=== PATIENT | male | born 1960 | race Caucasian/White ===

== ENCOUNTER 2018-01-26 10:53 | Day surgery (SDC) | payer BC, OTHER ==
[~2018-01-26] VITALS: Ht 190.5 cm; Wt 112.0 kg
[2018-01-26 11:19] VITALS: BP 134/90
[2018-01-26] MEDS ORDERED: SODIUM CHLORIDE 0.9% 1,000 ML IV ONE (11:26)
[2018-01-26] MEDS ORDERED: LISI-167 PO (11:33)
[2018-01-26] MEDS ORDERED: NITR0.6T4 SL (11:35)
[2018-01-26] MEDS ORDERED: ASPI-496 PO (11:36)
[2018-01-26] MEDS ORDERED: PLEASE ENTER ALLERGIES MC SCH (12:00)
[2018-01-26 12:07] LABS: BASOPHILS # (AUTO) 0.03 x10^3/uL (0-0.1); BASOPHILS % (AUTO) 1 % (0-1); EOSINOPHILS # (AUTO) 0.27 x10^3/uL (0-0.4); EOSINOPHILS % (AUTO) 4 % (1-7); LYMPHOCYTES # (AUTO) 1.41 x10^3/uL (1-3.4); LYMPHOCYTES % (AUTO) 22 % (22-44); MD NO; MEAN CORPUSCULAR HEMOGLOBIN 32.8 pg (27.5-34.5); MEAN CORPUSCULAR HGB CONC 34.8 g/dL (33.2-36.2); MEAN CORPUSCULAR VOLUME 94.2 fL (81-97); MEAN PLATELET VOLUME 8.3 fL (7.4-10.4); MONOCYTES # (AUTO) 0.39 x10^3/uL (0.2-0.8); MONOCYTES % (AUTO) 6 % (2-9); NEUTROPHILS # (AUTO) 4.21 x10^3/uL (1.8-6.8); NEUTROPHILS % (AUTO) 67 % (42-75); PLATELET COUNT 181 x10^3/uL (130-400); RED BLOOD COUNT 4.51 x10^6/uL (4.38-5.82); RED CELL DISTRIBUTION WIDTH 14.1 % (9.4-14.8)
[2018-01-26 12:13] LABS: ANION GAP 7 mmol/L (5-15); CALCIUM 8.4 mg/dL (8.5-10.1); CHLORIDE 109 mmol/L (98-107); CREATININE 1.12 mg/dL (0.7-1.3)
[2018-01-26] MEDS ORDERED: MIDAZOLAM 1 MG/ML, 5ML ONE (13:11)
[2018-01-26] MEDS ORDERED: TICAGRELOR 90 MG TABLET ONE (13:11)
[2018-01-26] MEDS ORDERED: VERAPAMIL 2.5 MG/ML, 2ML ONE (13:11)
[2018-01-26] MEDS ORDERED: FENTANYL PF 100 MCG/2ML ONE (13:11)
[2018-01-26] MEDS ORDERED: HEPARIN 1,000 UNITS/ML, 10ML ONE (13:12)
[2018-01-26] MEDS ORDERED: BIVALIRUDIN 250 MG ONE (13:12)
[2018-01-26] MEDS ORDERED: SODIUM CHLORIDE 0.45% 1,000 ML IV SCH (14:10)
== END 2018-01-26 17:05 | disposition home or self-care (01) ==
LOC: CACL 10:53
PROVIDERS: ATTEND Internal Medicine Cardiovascular Disease
DX: I25.118 Atherosclerotic heart disease of native coronary artery with other forms of angina pectoris (principal); I10 Essential (primary) hypertension; I42.8 Other cardiomyopathies; I51.9 Heart disease, unspecified; Z98.890 Other specified postprocedural states; Z79.899 Other long term (current) drug therapy; Z91.018 Allergy to other foods; Z91.030 Bee allergy status; Z79.82 Long term (current) use of aspirin
CPT/HCPCS: 36415; 80048; 85025; 93458; 93567; 99156; 99157; C1760; C1769; C1894; J1644; J2250; J3010; Q9967; J0583